=== PATIENT | male | born 1975 | race Caucasian/White ===

== ENCOUNTER 2016-11-02 10:29 | Emergency (ER) | payer MEDICAID ==
[~2016-11-02] VITALS: Ht 165.1 cm; Wt 78.9 kg
[~2016-11-02 10:29] MED LIST: [UNRECOGNIZED DRUG - OTHER]; high blood pressure
[2016-11-02 10:34] VITALS: Ht 165.1 cm; Wt 78.9 kg
--- NOTE | 2016-11-02 11:07 | ERD ---
ER Documentation Chief Complaint Date/Time DATE: 11/02/16 TIME: 11:[address],wright, chest congestion HPI 41-year-old man complains of sore throat 2-3 days, he also had URI symptoms previous to that although his URI symptoms including cough and congestion have improved. He denies recent antibiotic use, no vomiting or diarrhea, no changes in his voice, no difficulty swallowing, no chest pain or shortness of breath. Patient denies rash. ROS All systems reviewed and are negative except as per history of present illness. Medications Home Meds Active Scripts Azithromycin* (Zithromax*) 500 Mg Tablet, 500 MG PO DAILY for 5 Days, TAB Prov:CONRAD QUIGLEY MD 11/02/16 Ibuprofen* (Motrin*) 600 Mg Tab, 600 MG PO Q8 for PAIN AND/OR INFLAMMATION, #30 TAB Prov:CONRAD QUIGLEY MD 11/02/16 Reported Medications Metformin Hcl* (Metformin Hcl*) 1,000 Mg Tablet, 1000 MG PO WITH BREAKFAST DINNE , #30 TAB 11/02/16 Benazepril Hcl* (Benazepril Hcl*) 10 Mg Tablet, 10 MG PO DAILY, #30 TAB 11/02/16 Discontinued Reported Medications [diabetes ] No Conflict Check pt does not remember medication name 08/13/16 [high blood pressure] No Conflict Check pt id taking high blood pressure but does not the medication name 08/13/16 Allergies Allergies: Coded Allergies: No Known Allergy (Unverified , 11/02/16) PMhx/Soc Diabetes, hypertension History of Surgery: Yes (appendectomy) Anesthesia Reaction: No Hx Neurological Disorder: No Hx Respiratory Disorders: No Hx Cardiac Disorders: Yes (HTN, HLD, DMII) Hx Psychiatric Problems: No Hx Miscellaneous Medical Probl: No Hx Alcohol Use: No Hx Substance Use: No Hx Tobacco Use: No Smoking Status: Never smoker FmHx Family History: No diabetes Physical Exam Vitals Vital Signs Date Time Temp Pulse Resp B/P Pulse Ox O2 Delivery O2 Flow Rate FiO2 11/02/16 10:34 97.4 99 20 188/110 99 Physical Exam GENERAL: Well-developed, well-nourished, well-hydrated, in no apparent distress , looks nontoxic in appearance HEENT: Moist mucous membranes, pink conjunctiva, no cervical spine tenderness or step-off deformities, no goiter, no jaundice or icterus, extraocular movements intact without pain. Positive for bilateral pharyngeal erythema with exudates, uvula is midline NEURO: Alert and oriented 3, cranial nerves II through XII intact bilaterally, pupils equal round reactive to light, no focal deficits or facial asymmetry, sensation intact distally Strength 5/5 in upper and lower extremities bilaterally CARDIAC: Tachycardic and regular, no murmurs rubs or gallops LUNGS: Clear bilaterally no wheezing crackles or stridor ABDOMEN: Soft nontender, no guarding, no rigidity, no rebound, no psoas sign no obturator sign. Normoactive bowel sounds SKIN: Warm and dry to touch, no abrasions, contusions, or hematomas, no lacerations, no ecchymosis, no target lesions, and without ulcers EXTREMITIES: No clubbing cyanosis or edema, calves are bilaterally symmetrical, no Homans sign, no popliteal cord sign. Distal pulses equal and bilateral PSYCH: Normal affect without agitation or irritability Results 24 hrs Current Medications Medications (Trade) Dose Ordered Sig/Keyur Route PRN Reason Start Time Stop Time Status Last Admin Dose Admin Clonidine (Catapres) 0.1 mg ONCE ONCE PO 11/02/16 11:30 11/02/16 11:31 DC 11/02/16 11:27 Ibuprofen (Motrin) 600 mg ONCE ONCE PO 11/02/16 11:30 11/02/16 11:31 DC 11/02/16 11:27 Penicillin G Benzathine (Bicillin La) 1,200,000 units ONCE ONCE IM 11/02/16 11:30 11/02/16 11:31 DC 11/02/16 11:27 Lidocaine (Xylocaine 1% (Mdv) 20 ml) 20 ml ONCE ONCE SC 11/02/16 11:30 11/02/16 11:31 DC Procedures/MDM I administered ibuprofen 600 mg p.o., clonidine 0.1 mg p.o. for hypertension, and Bicillin L-A intramuscular injection. EKG performed, read by me revealed a sinus tachycardia at 106 bpm, normal axis, narrow QRS complex, no concerning ST elevations or depressions noted. There is evidence of left ventricular hypertrophy in lead I insistent with chronic hypertension. Patient's tachycardia improved and he feels much better after medications were administered, blood pressure improved. He will be discharged for follow-up with his PMD for continued outpatient management. Differential diagnoses considered, included but not limited to acute coronary syndrome, pulmonary embolism, aortic dissection, abdominal aortic aneurysm, sepsis, stroke, meningitis, encephalitis, pneumonia, appendicitis, cholecystitis , bowel obstruction, pyelonephritis, nephrolithiasis, cystitis, as well as metabolic, hematologic, and electrolyte abnormalities. As well as abscess, cellulitis, fractures, and dislocations. Patient feels much better at this time, and vital signs are normal, symptoms have improved. I did give strict instructions to return to the ED if symptoms continue or worsen, patient will otherwise follow-up with primary care physician. Patient understood instructions and agreed to plan. Departure Diagnosis: Primary Impression: Acute bacterial pharyngitis Additional Impression: Hypertension Hypertension type: essential hypertension Qualified Code: I10 - Essential hypertension Condition: Good CONRAD QUIGLEY MD Nov 02, 2016 11:07
[2016-11-02] MEDS ORDERED: AZIT500T3 PO (11:08)
[2016-11-02] MEDS ORDERED: IBUP-1542 PO (11:08)
[2016-11-02] MEDS ORDERED: METF1000 PO (11:16)
[2016-11-02] MEDS ORDERED: BENA10TA48 PO (11:16)
[2016-11-02] MEDS ORDERED: PENICILLIN G BENZ 1.2 MIL UNIT SYG IM ONE (11:30)
[2016-11-02] MEDS ORDERED: LIDOCAINE 1% (MDV) 20 ML INJ SC ONE (11:30)
[2016-11-02] MEDS ORDERED: IBUPROFEN 600 MG TAB PO ONE (11:30)
== END 2016-11-02 12:47 | disposition home or self-care (01) ==
LOC: E/R 10:29
DX: J02.8 Acute pharyngitis due to other specified organisms (principal); B96.89 Other specified bacterial agents as the cause of diseases classified elsewhere; I10 Essential (primary) hypertension; E11.9 Type 2 diabetes mellitus without complications; Z79.84 Long term (current) use of oral hypoglycemic drugs
CPT/HCPCS: 93005; 96372; J0561; Z7502; Z7610

== ENCOUNTER 2016-11-24 16:39 | Emergency (ER) | payer MEDICAID ==
[~2016-11-24] VITALS: Ht 167.6 cm; Wt 81.0 kg
[~2016-11-24 16:39] MED LIST changes: +AZIT500T3 PO; +BENA10TA48 PO; +IBUP-1542 PO; +METF1000 PO; -[UNRECOGNIZED DRUG - OTHER]; -high blood pressure
[2016-11-24 17:00] VITALS: Ht 167.6 cm; Wt 81.0 kg
[2016-11-24] MEDS ORDERED: IBUPROFEN 800 MG TAB PO ONE (18:30)
[2016-11-24] MEDS ORDERED: AMOXICILLIN/CLAV 875 MG TAB PO ONE (18:30)
[2016-11-24] MEDS ORDERED: DEXAMETHASONE 10 MG/ML 1 ML INJ PO ONE (19:00)
[2016-11-24] MEDS ORDERED: AMOX1TAB10 PO (19:03)
--- NOTE | 2016-11-24 19:03 | ERD ---
ER Documentation Chief Complaint Date/Time DATE: 11/24/16 TIME: 18:[address], headach and fever x 1wk HPI This is a 41-year-old male who presents to the emergency room for evaluation of a sore throat, headache, and fever for 1 weeks duration. This patient does state that he was seen in the emergency room and was diagnosed with strep pharyngitis and was given an injection and discharged home. The patient states that he was not given any medications for home as an outpatient and came to the ER today because his throat is still hurting and is developing headaches and ear pain as well. ROS All systems reviewed and are negative except as per history of present illness. Medications Home Meds Active Scripts Azithromycin* (Zithromax*) 500 Mg Tablet, 500 MG PO DAILY for 5 Days, TAB Prov:CONRAD QUIGLEY MD 11/02/16 Ibuprofen* (Motrin*) 600 Mg Tab, 600 MG PO Q8 for PAIN AND/OR INFLAMMATION, #30 TAB Prov:CONRAD QUIGLEY MD 11/02/16 Reported Medications Metformin Hcl* (Metformin Hcl*) 1,000 Mg Tablet, 1000 MG PO WITH BREAKFAST DINNE , #30 TAB 11/02/16 Benazepril Hcl* (Benazepril Hcl*) 10 Mg Tablet, 10 MG PO DAILY, #30 TAB 11/02/16 Allergies Allergies: Coded Allergies: No Known Allergy (Unverified , 11/02/16) PMhx/Soc History of Surgery: Yes (appendectomy) Anesthesia Reaction: No Hx Neurological Disorder: No Hx Respiratory Disorders: No Hx Cardiac Disorders: Yes (HTN, HLD, DMII) Hx Psychiatric Problems: No Hx Miscellaneous Medical Probl: No Hx Alcohol Use: No Hx Substance Use: No Hx Tobacco Use: No Physical Exam Vitals Vital Signs Date Time Temp Pulse Resp B/P Pulse Ox O2 Delivery O2 Flow Rate FiO2 11/24/16 17:00 97.8 103 18 168/110 97 Physical Exam Const: No acute distress Head: Atraumatic Eyes: Normal Conjunctiva ENT: Pharyngeal erythema with white visible exudate, normal External Ears, Nose and Mouth. Neck: Full range of motion..~ No meningismus. Resp: Clear to auscultation bilaterally Cardio: Regular rate and rhythm, no murmurs Abd: Soft, non tender, non distended. Normal bowel sounds Skin: No petechiae or rashes Back: No midline or flank tenderness Ext: No cyanosis, or edema Neur: Awake and alert Psych: Normal Mood and Affect Results 24 hrs Current Medications Medications (Trade) Dose Ordered Sig/Keyur Route PRN Reason Start Time Stop Time Status Last Admin Dose Admin Amoxicillin/ Clavulanate Potassium (Augmentin) 875 mg ONCE ONCE PO 11/24/16 18:30 11/24/16 18:31 DC Ibuprofen (Motrin) 800 mg ONCE ONCE PO 11/24/16 18:30 11/24/16 18:31 DC Procedures/MDM This 41-year-old male presents to the ER for the second time in 1 week for evaluation of a sore throat. The patient also complains of fever, and headache , bilateral ear pain. When I evaluated this patient I did note that he had visible exudate despite receiving penicillin in the emergency room. This patient was given Decadron and Augmentin here in the emergency room and will be discharged home with a prescription for Augmentin. The patient has no signs of respiratory distress, is tolerating secretions, hemodynamically stable. Patient's blood pressure was elevated (>120/80) but appears stable without evidence of hypertension emergency or urgency. The patient was counseled about the risks of hypertension and urged to pursue outpatient monitoring and therapy within a week with their primary care physician. Departure Diagnosis: Primary Impression: Strep pharyngitis Additional Impressions: Headache Hypertension Condition: Stable CHRISTIN MONTAGUE DO Nov 24, 2016 19:03
[2016-11-24 20:04] VITALS: PULSE 97; RESP 18; TEMP 99
[2016-11-24 20:06] VITALS: BP 200/127
== END 2016-11-24 20:32 | disposition home or self-care (01) ==
LOC: E/R 16:39
DX: J06.9 Acute upper respiratory infection, unspecified (principal); R51 Headache; I10 Essential (primary) hypertension; E11.9 Type 2 diabetes mellitus without complications; Z79.84 Long term (current) use of oral hypoglycemic drugs
CPT/HCPCS: J1100; Z7502; Z7610; 99283